=== PATIENT | female | born 1965 | race Caucasian/White ===

== ENCOUNTER → 2016-06-28 | Outpatient (CLI) | payer OTHER ==
[2015-03-03 05:20] VITALS: BP 134/86
[~2016-06-28] MED LIST: IOHEXOL 240 MG/ML 50ML VIAL. PO ONE; IOHEXOL 300 MG/ML 100ML VIAL. IV ONE; LIRA0.6P2 SQ; LOSA25TA4 PO; METF-620 PO; PRAV20TA2 PO
--- NOTE | 2016-06-28 10:16 | KCIC ---
Examination: CT of the abdomen pelvis with IV contrast. HISTORY History of right lower quadrant, pelvic pain. COMPARISON None available. TECHNIQUE Axial CT images of the abdomen pelvis were performed with oral and IV contrast. Coronal sagittal reformats were performed. Exposure: One or more of the following dose reduction technique were utilized for this examination: 1. Automated exposure control. 2.Adjustment of MA and /or KV according to patient size. 3. Use of iterative reconstruction technique. Findings: The visualized bibasilar lungs are clear. No evidence of free air identified in the abdomen. There is a decreased attenuation noted throughout the liver likely hepatic steatosis. Cholecystectomy clips identified. The visualized spleen, adrenals right adrenal grossly appears unremarkable. There is a small nodule identified in the left adrenal gland measuring 9 millimeters and measuring 18 Hounsfield units probably a adenoma. The stomach is mildly distended. The visualized pancreas grossly appears unremarkable. Prominent appearing common bile duct likely postcholecystectomy changes. The small bowel is nondilated. The appendix is normal. Feces and gas noted in the colon. Few sigmoid colon diverticulosis identified. Urinary bladder is mildly distended. There is a cystic structure identified in the uterus measuring 6.8 x 5.1 centimeters. The bilateral kidneys enhance symmetrically. No evidence of lytic bony destructive lesion. Mild degenerative changes identified in the visualized thoracolumbar spine. IMPRESSION - 6.8 centimeter cystic structure identified in the uterus could be cystic degeneration of a fibroid, however fluid in the endometrium is not completely excluded ,this can be better evaluated with a MRI pelvis or ultrasound. - Mild hepatic steatosis. - Normal appearing appendix. - Cholecystectomy changes. - Subcentimeter left adrenal nodule is difficult to characterize on this examination could be a probable adenoma. Electronically signed by: Shree Betancourt (June 28, 2016 10:14:29)
== END | disposition home or self-care (01) ==
LOC: KCIC CT 08:35
PROVIDERS: ATTEND Family Medicine
DX: R10.31 Right lower quadrant pain (principal)
CPT/HCPCS: 74177; 82565; Q9966; Q9967

== ENCOUNTER → 2017-12-01 | Outpatient (CLI) | payer OTHER ==
[2015-03-03 05:20] VITALS: BP 134/86
[~2017-12-01] MED LIST changes: -IOHEXOL 240 MG/ML 50ML VIAL. PO ONE; -IOHEXOL 300 MG/ML 100ML VIAL. IV ONE; -LOSA25TA4 PO; +LOSA25TA5 PO; -METF-620 PO; +METF10007 PO
--- NOTE | 2017-12-01 11:50 | KCIC ---
Rib series including 2 frontal chest radiographs and 3 additional views of the ribs. 12/01/2017 INDICATION: Bilateral lower rib pain. COMPARISON STUDY: None available FINDINGS: No focal consolidation, pneumothorax, or pleural effusion is seen. Heart is normal in size.No displaced rib fractures or other acute osseous abnormalities involving the bony thorax are identified. IMPRESSION: No displaced rib fractures, or other acute cardiopulmonary process is identified Electronically signed by: Jose Manuel Linder MD (12/01/2017 11:46 AM) [id number]
== END | disposition home or self-care (01) ==
LOC: KCIC 11:08
PROVIDERS: ATTEND Family Medicine
DX: R07.81 Pleurodynia (principal); F17.200 Nicotine dependence, unspecified, uncomplicated; Z79.899 Other long term (current) drug therapy
CPT/HCPCS: 71111

== ENCOUNTER → 2018-09-20 | Outpatient (CLI) | payer OTHER ==
[2015-03-03 05:20] VITALS: BP 134/86
[~2018-09-20] MED LIST changes: -LOSA25TA5 PO; +LOSA25TA54 PO
--- NOTE | 2018-09-21 12:41 | KCIC ---
Bilateral digital screening mammograms with 3-D tomosynthesis: Reason for examination: Routine screening. Comparison is made to previous studies dated 12/22/2012 and 11/27/2010. Bilateral mammograms in CC and oblique projections were obtained with 2-D imaging and 3-D tomosynthesis imaging on a [employer] unit and reviewed on the workstation. Interpretation was made with the benefit of CAD. The skin and nipples show no abnormalities. No abnormal axillary lymph nodes are seen. The breast parenchyma is predominantly fatty. (Breast density: Category A.) There are small circumscribed nodules consistent with intramammary lymph nodes in the upper outer quadrant of the right breast. There are no other dominant masses, suspicious calcifications or architectural distortion. Impression: No evidence of malignancy. Recommend routine screening. BI-RAD Category 2: Benign. "Our facility is accredited by the [employer] Mammography Program." This patient's information has been entered into a reminder system for the patient to be notified with the results of her examination and a target date for the next mammogram. Electronically signed by: Teresa Bartholomew MD (09/21/2018 12:39 PM) [id number]
== END | disposition home or self-care (01) ==
LOC: KCIC MAMMO 14:04
PROVIDERS: ATTEND Family Medicine
DX: Z12.31 Encounter for screening mammogram for malignant neoplasm of breast (principal)
CPT/HCPCS: 77063; 77067

== ENCOUNTER → 2019-03-25 | Outpatient (CLI) | payer OTHER ==
[2015-03-03 05:20] VITALS: BP 134/86
--- NOTE | 2019-03-25 12:50 | RAD ---
EXAM: 1. Lumbar spine 2 views. 2. Right knee 2 views. HISTORY: Low back and right knee pain and limited range of motion. COMPARISON: None. FINDINGS: There is a mild lumbar dextrocurvature. There is slight grade 1 anterolisthesis at L5-S1 from bilateral L5 pars interarticularis defects. There is slight grade 1 anterolisthesis at L2-3. Vertebral body heights are maintained. Degenerative disc disease is mild at L2-3 and from L4 through S1. Facet osteoarthritis is at least moderate at L5-S1. The normal lordosis is straightened. Changes of bilateral tubal ligation are noted. No fractures are appreciated at the right knee. Joint spaces and alignment appear maintained. There is no joint effusion. IMPRESSION: 1. Grade 1 anterolisthesis at L5-S1 from bilateral L5 pars interarticularis defects. 2. There is also slight anterolisthesis at L2-3. 3. Degenerative disc disease is mild at L2-3 and from L4 through S1. Electronically signed by: Nolan Morfin MD (03/25/2019 12:47 PM) [facility]
== END | disposition home or self-care (01) ==
LOC: RAD 10:18
PROVIDERS: ATTEND Family Medicine
DX: M43.17 Spondylolisthesis, lumbosacral region (principal); M51.37 Other intervertebral disc degeneration, lumbosacral region; M47.817 Spondylosis without myelopathy or radiculopathy, lumbosacral region
CPT/HCPCS: 72100; 73560

== ENCOUNTER 2019-11-22 10:44 | Emergency (ER) | payer OTHER ==
[~2019-11-22] VITALS: Ht 175.3 cm; Wt 104.0 kg
[2019-11-22] MEDS ORDERED: ONDANSETRON PF 4 MG/2 ML VIAL. IVP ONE (11:45)
[2019-11-22] MEDS ORDERED: IV NORMAL SALINE 1000ML BAG 1,000 ML IV ONE (11:45)
[2019-11-22] MEDS ORDERED: fentaNYL PF VIAL 100 MCG/2 ML VIAL IVP ONE (11:45)
--- NOTE | 2019-11-22 12:02 | PHYS DOC ---
Past Medical History Past Medical History: Diabetes-Type II, High Cholesterol, Hypertension Additional Past Medical Histor: IBS Past Surgical History: Cholecystectomy, Tubal ligation, Other Additional Past Surgical Histo: UTERINE ABLATION Smoking Status: Current Every Day Smoker Alcohol Use: None Drug Use: None General Adult EDM: Chief Complaint: ABDOMINAL PAIN HPI: HPI: Patient is a 54 year old female with a history of diabetes type 2, hypertension, high cholesterol, IBS, who presents the ED today complaining of ge neralized abdominal pain with nausea vomiting and diarrhea, symptoms began a week ago. Patient is also complaining of subjective fevers. Denies any hematemesis or melena. Denies anything specifically exacerbating or relieving her pain. Review of Systems: Review of Systems: Constitutional: Denies fever or chills. [] Eyes: Denies change in visual acuity. [] HENT: Denies nasal congestion or sore throat. [] Respiratory: Denies cough or shortness of breath. [] Cardiovascular: Denies chest pain or edema. [] GI: Reports generalized abdominal pain with nausea vomiting and diarrhea : Denies dysuria. [] Musculoskeletal: Denies back pain or joint pain. [] Integument: Denies rash. [] Neurologic: Denies headache, focal weakness or sensory changes. [] Psychiatric: Denies depression or anxiety. [] Heart Score: Risk Factors: Risk Factors: DM, Current or recent (<one month) smoker, HTN, HLP, family history of CAD, obesity. Risk Scores: Score 0 - 3: 2.5% MACE over next 6 weeks - Discharge Home Score 4 - 6: 20.3% MACE over next 6 weeks - Admit for Clinical Observation Score 7 - 10: 72.7% MACE over next 6 weeks - Early Invasive Strategies Current Medications: Current Medications Medications (Trade) Dose Ordered Sig/Ana Rosa Start Time Stop Time Status Last Admin Dose Admin Fentanyl Citrate (Fentanyl 2ml Vial) 50 mcg 1X ONCE 11/22/19 11:45 11/22/19 11:49 DC Ondansetron HCl (Zofran) 4 mg 1X ONCE 11/22/19 11:45 11/22/19 11:49 DC Sodium Chloride 1,000 ml @ 1,000 mls/hr 1X ONCE 11/22/19 11:45 11/22/19 12:44 Allergies: Allergies: Allergies Coded Allergies Type Severity Reaction Last Updated Verified tetracaine Allergy Intermediate RASH 12/04/14 No Physical Exam: PE: Constitutional: Well developed, well nourished, no acute distress, non-toxic appearance. [] HENT: Normocephalic, atraumatic, bilateral external ears normal, oropharynx moist, no oral exudates, nose normal. [] Eyes: PERRLA, EOMI, conjunctiva normal, no discharge. [] Neck: Normal range of motion, no tenderness, supple, no stridor. [] Cardiovascular:Heart rate regular rhythm, no murmur [] Lungs & Thorax: Bilateral breath sounds clear to auscultation [] Abdomen: Bowel sounds normal, soft, no tenderness, no masses, no pulsatile masses. [] Skin: Warm, dry, no erythema, no rash. [] Back: No tenderness, no CVA tenderness. [] Extremities: No tenderness, no cyanosis, no clubbing, ROM intact, no edema. [] Neurologic: Alert and oriented X 3, normal motor function, normal sensory function, no focal deficits noted. [] Psychologic: Affect normal, judgement normal, mood normal. [] Current Patient Data: Vital Signs: Vital Signs Date Time Temp Pulse Resp B/P (MAP) Pulse Ox O2 Delivery O2 Flow Rate FiO2 11/22/19 11:39 98.5 94 18 123/71 (88) 97 Room Air 98.5 EKG: EKG: [] Radiology/Procedures: Radiology/Procedures: []PROCEDURE: CT ABD PELV W/ IV CONTRST ONLY Examination: CT ABD PELV W/ IV CONTRST ONLY History: Reason: abd pain, n/v/d / Spl. Instructions: INJ 75ML OMNI 300 / History: Comparison/Correlation: 06/28/2016 CT abdomen and pelvis with contrast Findings: Axial images of the abdomen and pelvis were obtained following contrast. Sagittal and coronal reformatted images provided. Visualized lung bases are clear. Cholecystectomy noted. Liver, spleen, pancreas, adrenal glands, and kidneys are unremarkable. The appendix is normal. No bowel obstruction or extraluminal gas. No ascites or pelvic free fluid. Fibroid involvement of the uterine fundus noted left adnexal 2.9 cm x 2 cm ovarian cyst is present with no suspicious features.. No enlarged abdominal or pelvic lymph nodes. Bony structures are unremarkable. Impression: Diverticulosis is mild. No acute process. Left adnexal cyst which is probably physiologic. 4-6 month follow-up with ultrasound to assess stability or resolution is recommended considering patient's age. PQRS Compliance Statement: One or more of the following individualized dose reduction techniques were utilized for this examination: 1. Automated exposure control 2. Adjustment of the mA and/or kV according to patient size 3. Use of iterative reconstruction technique Electronically signed by: Ancelmo Lino MD (11/22/2019 2:04 PM) [id number] DICTATED and SIGNED BY: ANCELMO LINO MD DATE: 11/22/19 1404 Course & Med Decision Making: Course & Med Decision Making Pertinent Labs and Imaging studies reviewed. (See chart for details) This is a 54-year-old female patient presenting to the ED today with generalized abdominal pain with nausea vomiting and diarrhea, symptoms for 1 week. CBC with a WBC of 12.3, CMP with no acute findings, urine negative for infection, CT of the abdomen and pelvic was negative for any acute findings, noted for left adrenal cyst which patient will follow up with her own CASH REGISTER REPAIRER as well as diverticulosis which patient will follow up with GI. Patient was discharged to home. Provided return precautions. Dragon Disclaimer: DragWorklight Disclaimer: This electronic medical record was generated, in whole or in part, using a voice recognition dictation system. Departure Departure Impression: Primary Impression: Abdominal pain Qualified Codes: R10.9 - Unspecified abdominal pain Additional Impressions: Vomiting and diarrhea Adnexal cyst Diverticulosis Person under investigation for COVID-19 Disposition: HOME, SELF-CARE Condition: STABLE Referrals: NOAH DOS SANTOS MD (PCP) follow up next week HENNA SILVER MD follow up in one week Patient Instructions: Diarrhea, [id number], Diverticulosis, Nausea and Vomiting Additional Instructions: You were evaluated in the emergency room for nausea vomiting diarrhea and abdominal pain. Please follow-up with the GI specialist provided, your primary care doctor as well as an CASH REGISTER REPAIRER for the ovarian cyst. Scripts Dicyclomine Hcl (DICYCLOMINE HCL) 20 Mg Tablet 1 TAB PO TID, #30 TAB 1 Refill Prov: MUTUNGA,ANTHONY PROPERTY MANAGEMENT COORDINATOR 11/22/19 Ondansetron (ONDANSETRON ODT) 4 Mg Tab.rapdis 1 TAB PO PRN Q6-8HRS, #16 TAB Prov: MUTUNGA,ANTHONY PROPERTY MANAGEMENT COORDINATOR 11/22/19 Justicifation of Admission Dx: Justifications for Admission: Justification of Admission Dx: N/A ANTHONY VENEGAS APRN Nov 22, 2019 12:02
[2019-11-22 12:24] LABS: BASO # 0.1 x10^3/uL (0.0-0.2); BASO % 1 % (0-3); EOS # 0.2 x10^3/uL (0.0-0.7); EOS % 1 % (0-3); HEMATOCRIT 40.3 % (36.0-47.0); HEMOGLOBIN 13.4 g/dL (12.0-15.5); LYMPH # 2.3 x10^3/uL (1.0-4.8); LYMPH % 19 % (24-48); MEAN CORPUSCULAR HEMOGLOBIN 28 pg (25-35); MEAN CORPUSCULAR HGB CONC 33 g/dL (31-37); MEAN CORPUSCULAR VOLUME 84 fL (79-100); MONO # 0.8 x10^3/uL (0.0-1.1); MONO % 7 % (0-9); NEUT # 8.9 x10^3/uL (1.8-7.7); NEUT % 72 % (31-73); PLATELET COUNT 428 x10^3/uL (140-400); RED BLOOD COUNT 4.81 x10^6/uL (3.50-5.40); RED CELL DISTRIBUTION WIDTH 14.3 % (11.5-14.5); WHITE BLOOD COUNT 12.3 x10^3/uL (4.0-11.0)
[2019-11-22 12:27] LABS: BILIRUBIN,URINE NEGATIVE (NEG); CLARITY,URINE CLEAR; COLOR,URINE YELLOW; NITRITE,URINE NEGATIVE (NEG); PROTEIN,URINE NEGATIVE (NEG-TRACE); UROBILINOGEN,URINE 0.2 mg/dL (0.2 mg/dL)
[2019-11-22 12:34] LABS: BARBITURATES NEG (NEG); BENZODIAZEPINES NEG (NEG); CANNABINOIDS NEG (NEG); COCAINE NEG (NEG); METHADONE NEG (NEG); OPIATES NEG (NEG); PHENCYCLIDINE NEG (NEG)
[2019-11-22 12:37] LABS: AMPHETAMINE/METHAMPHETAMINE NEG (NEG)
[2019-11-22 12:38] LABS: HYALINE CASTS, URINE FEW /HPF; SQUAMOUS EPITHELIAL CELL,UR MOD /LPF
[2019-11-22 12:39] LABS: BACTERIA,URINE 0 /HPF (0-FEW); YEAST,URINE PRESENT /HPF
[2019-11-22 13:07] LABS: CALCIUM 9.2 mg/dL (8.5-10.1); CREATININE 0.8 mg/dL (0.6-1.0); GFR 75.3; POTASSIUM 4.5 mmol/L (3.5-5.1)
[2019-11-22 13:13] LABS: ALBUMIN 3.4 g/dL (3.4-5.0); ALBUMIN/GLOBULIN RATIO 0.8 (1.0-1.7); MAGNESIUM 1.9 mg/dL (1.8-2.4); TOTAL BILIRUBIN 0.2 mg/dL (0.2-1.0); TOTAL PROTEIN 7.5 g/dL (6.4-8.2)
[2019-11-22] MEDS ORDERED: CONTRAST GIVEN. MC PRN (13:30)
[2019-11-22] MEDS ORDERED: IOHEXOL 300 MG/ML 100ML VIAL. IV ONE (13:30)
--- NOTE | 2019-11-22 14:07 | RAD ---
Examination: CT ABD PELV W/ IV CONTRST ONLY History: Reason: abd pain, n/v/d / Spl. Instructions: INJ 75ML OMNI 300 / History: Comparison/Correlation: 06/28/2016 CT abdomen and pelvis with contrast Findings: Axial images of the abdomen and pelvis were obtained following contrast. Sagittal and coronal reformatted images provided. Visualized lung bases are clear. Cholecystectomy noted. Liver, spleen, pancreas, adrenal glands, and kidneys are unremarkable. The appendix is normal. No bowel obstruction or extraluminal gas. No ascites or pelvic free fluid. Fibroid involvement of the uterine fundus noted left adnexal 2.9 cm x 2 cm ovarian cyst is present with no suspicious features.. No enlarged abdominal or pelvic lymph nodes. Bony structures are unremarkable. Impression: Diverticulosis is mild. No acute process. Left adnexal cyst which is probably physiologic. 4-6 month follow-up with ultrasound to assess stability or resolution is recommended considering patient's age. PQRS Compliance Statement: One or more of the following individualized dose reduction techniques were utilized for this examination: 1. Automated exposure control 2. Adjustment of the mA and/or kV according to patient size 3. Use of iterative reconstruction technique Electronically signed by: Ancelmo Grant MD (11/22/2019 2:04 PM) [email or web address]
[2019-11-22 14:39] VITALS: BP 117/73
[2019-11-22] MEDS ORDERED: ONDA4TAB12 PO (14:52)
[2019-11-22] MEDS ORDERED: DICY20TA3 PO (14:52)
== END 2019-11-22 15:06 | disposition home or self-care (01) ==
LOC: ER 10:44
DX: N83.202 Unspecified ovarian cyst, left side (principal); K57.90 Diverticulosis of intestine, part unspecified, without perforation or abscess without bleeding; Z20.828 Contact with and (suspected) exposure to other viral communicable diseases; R19.7 Diarrhea, unspecified; E11.9 Type 2 diabetes mellitus without complications; E78.00 Pure hypercholesterolemia, unspecified; I10 Essential (primary) hypertension; K58.9 Irritable bowel syndrome, unspecified; Z98.51 Tubal ligation status; F17.200 Nicotine dependence, unspecified, uncomplicated; Z90.49 Acquired absence of other specified parts of digestive tract; Z88.1 Allergy status to other antibiotic agents
CPT/HCPCS: 36415; 74177; 80053; 80307; 81001; 83690; 83735; 85025; 96361; 96374; 96375; 99285; G0480; J2405; J3010; J7030; Q9967; U0003

== ENCOUNTER 2020-04-20 06:12 | Emergency (ER) | payer OTHER ==
[~2020-04-20] VITALS: Ht 175.3 cm; Wt 106.0 kg
[~2020-04-20 06:12] MED LIST changes: +DICY20TA3 PO; +ONDA4TAB12 PO
--- NOTE | 2020-04-20 07:27 | ED.ADGEN ---
Past Medical History Past Medical History: Diabetes-Type II, High Cholesterol, Hypertension Additional Past Medical Histor: IBS Past Surgical History: Cholecystectomy, Tubal ligation, Other Additional Past Surgical Histo: UTERINE ABLATION, FATTY TUMOR REMOVAL. Smoking Status: Light Tobacco Smoker Alcohol Use: None Drug Use: None General Adult EDM: Chief Complaint: MECHANICAL FALL HPI: HPI: Patient is a 54-year-old female past medical history of diabetes who presents to the emergency room complaining of a fall this morning. Patient states that she was walking into her kitchen when she stumbled along her own feet and fell hitting the left side of her head. She did not lose consciousness. She has not had any kind of nausea or vomiting. She does have severe pain in her head. She also had a fall 3 days ago where she stood up out of bed and fell straight back hitting the back of her head. Unclear whether she had loss of consciousness at that time. Her and her are concerned that she is having new onset of falls. She does take 325 of aspirin every day. She is not on any other blood thinners. She has not had any kind of dizziness. She does not get any kind of chest pain or shortness of breath prior to the episodes. She also hit her left knee but has been able to walk and has very minimal pain in her knee. She states that the pain in her head is on the left side and is a throbbing pain. She denies any numbness or weakness in any of her limbs. Review of Systems: Review of Systems: Complete ROS is negative unless otherwise documented in HPI Current Medications: Current Medications Medications (Trade) Dose Ordered Sig/[facility] Start Time Stop Time Status Last Admin Dose Admin Sumatriptan Succinate (Imitrex) 25 mg 1X ONCE 04/20/20 08:30 04/20/20 08:31 UNV Allergies: Allergies: Allergies Coded Allergies Type Severity Reaction Last Updated Verified tetracaine Allergy Intermediate RASH 12/04/14 No Physical Exam: PE: General: Awake, alert, NAD. Well Nourished, well hydrated. Cooperative HEENT: [Atraumatic], EOMI, PERRL, airway patent, moist oral mucosa, no nasal septal hematoma, no facial crepitus or deformity Neck: Supple, trachea midline,[no c-spine tenderness] Respiratory: CTA bilaterally, normal effort, no wheezing/crackles, no crepitus CV: RRR, no murmur, cap refill <2, 2+ bilateral radial/DP pulses GI: Soft, nondistended, nontender, no masses MSK: No obvious deformities, left knee has small abrasion without any swelling or deformity, intact range of motion and sensation, pelvis stable and nontender Skin: Warm, dry, abrasion to left knee Neuro: A&O x3, speech NL, sensory and motor grossly intact, no focal deficits Psych: Normal affect, normal mood, not suicidal or homicidal Current Patient Data: Vital Signs: Vital Signs Date Time Temp Pulse Resp B/P (MAP) Pulse Ox O2 Delivery O2 Flow Rate FiO2 04/20/20 06:46 74 147/69 (95) 97 Room Air 04/20/20 06:19 97.9 16 97.9 EKG: EKG: [] Heart Score: Risk Factors: Risk Factors: DM, Current or recent (<one month) smoker, HTN, HLP, family history of CAD, obesity. Risk Scores: Score 0 - 3: 2.5% MACE over next 6 weeks - Discharge Home Score 4 - 6: 20.3% MACE over next 6 weeks - Admit for Clinical Observation Score 7 - 10: 72.7% MACE over next 6 weeks - Early Invasive Strategies Radiology/Procedures: Radiology/Procedures: [] Course & Med Decision Making: Course & Med Decision Making Pertinent Labs and Imaging studies reviewed. (See chart for details) Patient is a 54yo elderly female who presents to the ED after a mechanical fall from standing. On exam, patient has an abrasion to her knee and tenderness to the left side of her scalp. Due to patient's age and head trauma they cannot be ruled out with sudanese CT head rule and will need a CT head to evaluate for intracranial bleed and a CT cervical spine. No signs of major facial injuries and a CT maxillofacial is not needed at this time. Patient did not have any symptoms concerning for a presyncopal episode. They deny chest pain, palpitations, dizziness, headache, shortness of breath, recent bleeding, numbness/weakness in extremities or face. They do not need a syncope work up at this time. CT head is negative. Patient does have some fluid build up behind bilateral TMs. Will place her on zyrtec. Patient will call her primary care physician today. Patient's test results and vitals while in the ED were fully reviewed and discussed with the patient. Patient is stable and at this time does not need admission to the hospital. We have discussed strict return precautions and the importance of following up with their Primary Care Physician. Patient stated understanding and was given an opportunity to ask any questions. Patient is in agreement with plan. Dragon Disclaimer: Dragon Disclaimer: This electronic medical record was generated, in whole or in part, using a voice recognition dictation system. Departure Departure Impression: Primary Impression: Closed head injury Disposition: 01 DC HOME SELF CARE/HOMELESS Condition: STABLE Referrals: NOAH DOS SANTOS MD (PCP) Patient Instructions: Head Injury, Adult Scripts Cetirizine Hcl (ZYRTEC) 10 Mg Tablet 2 TAB PO DAILY, #30 TAB 2 Refills Prov: ADRIANE PAYNE MD 04/20/20 ADRIANE PAYNE MD Apr 20, 2020 07:27
--- NOTE | 2020-04-20 07:37 | RAD ---
CT HEAD/BRAIN WO History: Reason: fall, closed head injury, blood thinners / Spl. Instructions: / History: Comparison: None. Technique: Noncontrast CT imaging was performed of the head. Exposure: One or more of the following individualized dose reduction techniques were utilized for thi s examination: 1. Automated exposure control 2. Adjustment of the mA and/or kV according to patient size 3. Use of iterative reconstruction technique. Findings: No intracranial hemorrhage. No mass effect. No hydrocephalus. Extra-axial spaces are unremarkable. Imaged orbits are unremarkable. Imaged paranasal sinuses and mastoid air cells are clear. No acute ca lvarial fracture. Impression: 1. No acute intracranial abnormality. Electronically signed by: José Antonio Vicente DO (04/20/2020 7:35 AM) [id number]
[2020-04-20 07:56] VITALS: BP 147/66
[2020-04-20] MEDS ORDERED: CETI10TA74 PO (08:18)
== END 2020-04-20 08:54 | disposition home or self-care (01) ==
LOC: ER 06:12
DX: S80.02XA Contusion of left knee, initial encounter (principal); S09.8XXA Other specified injuries of head, initial encounter; E11.9 Type 2 diabetes mellitus without complications; E78.00 Pure hypercholesterolemia, unspecified; I10 Essential (primary) hypertension; Z90.49 Acquired absence of other specified parts of digestive tract; Z98.51 Tubal ligation status; Z98.890 Other specified postprocedural states; Z87.891 Personal history of nicotine dependence; W18.39XA Other fall on same level, initial encounter; Y93.89 Activity, other specified; Y92.89 Other specified places as the place of occurrence of the external cause; Y99.8 Other external cause status
CPT/HCPCS: 70450; 99284

== ENCOUNTER → 2020-05-04 | Outpatient (CLI) | payer OTHER ==
[2020-04-20 07:56] VITALS: BP 147/66
[~2020-05-04] MED LIST changes: +CETI10TA74 PO
--- NOTE | 2020-05-04 09:18 | KCIC ---
Bilateral digital screening mammograms: Reason for examination: Routine screening. Comparison is made to previous previous studies dated back to 11/27/2010. Interpretation is made with the benefit of CAD. The skin and nipples show no abnormalities. No abnormal lymph nodes are seen. The breast parenchyma i s predominantly fatty. (Breast density: Category A.) There are small nodules consistent with intramam billy lymph nodes in the lateral right breast which are stable. There are no new dominant masses, susp icious calcifications or architectural distortions. Impression: No evidence of malignancy. Recommend routine screening. BI-RADS Category 2: Benign. "Our facility is accredited by the [employer] Mammography Program." This patient's information has been entered into a reminder system for the patient to be notified wit h the results of her examination and a target date for the next mammogram. Electronically signed by: Teresa Bartholomew MD (05/04/2020 9:16 AM) [email or web address]
== END ==
LOC: KCIC MAMMO 08:02
PROVIDERS: ATTEND Family Medicine
DX: Z12.31 Encounter for screening mammogram for malignant neoplasm of breast (principal)
CPT/HCPCS: 77067

== ENCOUNTER → 2021-01-12 | Outpatient (CLI) | payer OTHER ==
[~2021-01-12] MED LIST changes: +DICY20TA PO; -DICY20TA3 PO; +IOHEXOL 240 MG/ML 50ML VIAL. PO ONE; +IOHEXOL 300 MG/ML 100ML VIAL. IV ONE
--- NOTE | 2021-01-12 10:45 | KCIC ---
CT of the abdomen and pelvis with contrast 01/12/2021 10:42 AM Indication: Abdominal and pelvic pain. Diarrhea. Comparison study: CT of the abdomen and pelvis November 22, 2019 Technique: Multidetector CT imaging of the abdomen and pelvis was performed following the administrat ion of IV contrast. Findings: The partially visualized lung bases demonstrate no acute abnormality. The liver, spleen, bilateral adrenal glands, bilateral kidneys, and pancreas, are grossly unremarkabl e. The gallbladder is surgically absent. There is no bowel obstruction. No evidence of acute inflamma tory change involving visualized bowel is identified. Appendix is visualized and unremarkable in appe arance. Bladder is grossly unremarkable. No free fluid or free air is seen in the abdomen or pelvis. No acute osseous changes are identified. Impression: No evidence of acute intra-abdominal abnormality CT DOSING PQRS STATEMENT: One or more of the following individualized dose reduction techniques were utilized for this examinat ion: 1. Automated exposure control 2. Adjustment of the mA and/or kV according to patient size 3. Use of iterative reconstruction technique Electronically signed by: Jose Manuel Linder MD (01/12/2021 10:43 AM) [id number]
== END ==
LOC: KCIC CT 09:00
PROVIDERS: ATTEND Internal Medicine Gastroenterology
DX: R10.9 Unspecified abdominal pain (principal)
CPT/HCPCS: 74177; 82565; Q9966; Q9967

== ENCOUNTER → 2021-04-28 | Outpatient (CLI) | payer OTHER ==
[~2021-04-28] MED LIST changes: -IOHEXOL 240 MG/ML 50ML VIAL. PO ONE; -IOHEXOL 300 MG/ML 100ML VIAL. IV ONE
--- NOTE | 2021-04-29 09:38 | KCIC ---
Small Bowel Series: Indication: Abdominal pain, diarrhea. The preliminary film is unremarkable. Following administration of oral barium, images were performed at timed intervals. The transit time it is approximately 120 minutes. The duodenal loop appears damián l. The small bowel mucosal pattern is normal. There is no stricture or dilatation. The terminal ileum appears normal. Total fluoroscopic images 1. Fluoroscopic time 29 seconds. Impression: Negative small bowel series. Electronically signed by: Shree Betancourt MD (04/29/2021 9:35 AM) [id number]
== END ==
LOC: KCIC 08:18
PROVIDERS: ATTEND Internal Medicine Gastroenterology
DX: R10.84 Generalized abdominal pain (principal); R19.7 Diarrhea, unspecified; R11.10 Vomiting, unspecified
CPT/HCPCS: 74250